=== PATIENT | male | born 1940 | race Asian ===

== ENCOUNTER 2022-06-21 23:37 | Inpatient (IN) | payer OTHER ==
[~2022-06-21] VITALS: Ht 160 cm; Wt 60.3 kg
[2022-06-22] MEDS ORDERED: MORPHINE SULFATE 4 MG/ML CPJ (NOT FOR IM USE) IV ONE (00:15)
[2022-06-22 01:10] LABS: BASOPHILS % 0.1 % (0.0-2.0); EOSINOPHILS % 0.2 % (0.0-5.0); HEMATOCRIT. 39.3 % (42.0-52.0); HEMOGLOBIN. 12.8 g/dL (14.0-18.0); LYMPHOCYTES % 13.1 % (20.0-50.0); MEAN CORPUSCULAR HEMOGLOBIN 31.1 pg (28.0-32.0); MEAN CORPUSCULAR VOLUME 95.3 fL (80.0-94.0); MEAN PLATELET VOLUME 7.8 fl (7.4-10.4); MONOCYTES % 6.1 % (2.0-8.0); NEUTROPHILS % 80.5 % (40.0-76.0); PLATELET 165 x1000/uL (130-400); RED BLOOD CELL COUNT 4.12 mill/uL (4.7-6.1)
[2022-06-22] MEDS ORDERED: SODIUM CHLORIDE 0.9% 1,000 ML IV ONE (01:30)
[2022-06-22 01:40] LABS: CHLORIDE 109 mEq/L (98-107)
[2022-06-22 02:38] LABS: PROTHROMBIN TIME 11.2 sec (9.6-11.0)
[2022-06-22 12:00] VITALS: BP 125/79
[2022-06-22] MEDS ORDERED: ACETAMINOPHEN 325MG TABLET PO PRN ×2 (13:00)
[2022-06-22] MEDS ORDERED: ONDANSETRON HCL 4MG/2ML INJ IV PRN ×2 (13:00→19:15)
[2022-06-22] MEDS ORDERED: SODIUM CHLORIDE 0.9% 1,000 ML IV SCH (13:00)
[2022-06-22] MEDS ORDERED: DIPHENHYDRAMINE 50MG/ML VIAL IV PRN (13:00)
[2022-06-22] MEDS ORDERED: CLONIDINE 0.1MG TABLET PO PRN (13:00)
[2022-06-22] MEDS ORDERED: DEXTROSE 50% WATER 50ML SYRINGE IV PRN (13:00)
[2022-06-22] MEDS ORDERED: MAGNESIUM/ALUMINUM HYDROXIDE/SIMETHICONE 30ML UDC PO PRN (13:00)
[2022-06-22] MEDS ORDERED: NALOXONE HCL 0.4MG/ML VIAL IV PRN (13:15)
[2022-06-22] MEDS: PANTOPRAZOLE SODIUM 40 MG/VIAL IV SCH (14:39)
[2022-06-22] MEDS: SODIUM CHLORIDE 0.9% 1,000 ML IV SCH ×2 (14:40→22:55)
[2022-06-22] MEDS: MORPHINE SULFATE 2 MG/ML CPJ (NOT FOR IM USE) IV PRN (14:40)
[2022-06-22 15:55] VITALS: BP 125/79
[2022-06-22 16:00] VITALS: BP 144/90
[2022-06-22] MEDS ORDERED: LIDOCAINE HCL 1%/EPI 1:200,000 30 ML VIAL ONE (16:20)
[2022-06-22] MEDS ORDERED: VANCOMYCIN HCL 1 GM/VIAL ONE (16:21)
[2022-06-22] MEDS ORDERED: POLYMYXIN B SULFATE 500000 UNITS/VIAL ONE (16:21)
[2022-06-22] MEDS ORDERED: BACITRACIN 15GM TUBE TOP ONE (16:21)
[2022-06-22] MEDS ORDERED: DEXAMETHASONE 4MG/ML 1ML VIAL ONE (17:31)
[2022-06-22] MEDS ORDERED: ONDANSETRON HCL 4MG/2ML INJ ONE (17:31)
[2022-06-22] MEDS ORDERED: PROPOFOL 200MG/20ML VIAL IV ONE (17:32)
[2022-06-22] MEDS ORDERED: LIDOCAINE HCL 1% 10 MG/ML 10ML VIAL ONE (17:32)
[2022-06-22] MEDS ORDERED: FENTANYL CITRATE/PF 50MCG/ML 2ML VIAL ONE (17:33)
[2022-06-22] MEDS ORDERED: MIDAZOLAM HCL 2 MG/2 ML VIAL ONE (17:33)
[2022-06-22] MEDS ORDERED: ETOMIDATE 2MG/ML 10ML VIAL IV ONE (18:02)
[2022-06-22] MEDS ORDERED: PHENYLEPHRINE HCL 10 MG/ML 1ML (IV VIAL) IV ONE (18:03)
[2022-06-22] MEDS ORDERED: HYDROMORPHONE HCL/PF 2MG/ML CPJ ONE (18:58)
[2022-06-22] MEDS ORDERED: MEPERIDINE HCL/PF 25MG/ML CPJ IV PRN (19:15)
[2022-06-22] MEDS ORDERED: HYDROMORPHONE HCL/PF 2MG/ML CPJ IV PRN (19:15)
[2022-06-22] MEDS ORDERED: LABETALOL 5MG/ML SYR 20 MG/4 ML SYRINGE IV PRN (19:15)
[2022-06-22 20:00] VITALS: BP 116/81
[2022-06-22] MEDS ORDERED: ZOLPIDEM TARTRATE 5MG TABLET PO PRN (21:00)
[2022-06-22] MEDS: BLOOD SUGAR DIAGNOSTIC STRIP TEST SCH (21:00)
[2022-06-22] MEDS: INSULIN LISPRO 100 UNITS/ML SUBCUT SCH (22:51)
[2022-06-23] VITALS: BP 133/80
[2022-06-23] MEDS: CEFAZOLIN 2,000 MG in DEXT 5% WATER 100 ML IV SCH ×3 (01:38→18:12)
[2022-06-23] MEDS: MORPHINE SULFATE 2 MG/ML CPJ (NOT FOR IM USE) IV PRN ×2 (05:28→11:57)
[2022-06-23] MEDS: BLOOD SUGAR DIAGNOSTIC STRIP TEST SCH ×4 (06:20→21:12)
[2022-06-23] MEDS: INSULIN LISPRO 100 UNITS/ML SUBCUT SCH ×4 (07:50→21:09)
[2022-06-23 08:00] VITALS: BP 154/76
[2022-06-23] MEDS: SODIUM CHLORIDE 0.9% 1,000 ML IV SCH (09:00)
[2022-06-23] MEDS: PANTOPRAZOLE SODIUM 40 MG/VIAL IV SCH (09:00)
[2022-06-23] MEDS: ENOXAPARIN 40MG/0.4ML SYR SUBCUT SCH (09:00)
[2022-06-23] MEDS: METOPROLOL SUCCINATE 50MG ER TABLET PO SCH (09:46)
[2022-06-23 12:27] VITALS: BP 129/79
[2022-06-23 16:14] VITALS: BP 140/74
[2022-06-23] MEDS: HYDROCODONE/ACETAMINOPHEN 5/325MG TABLET PO PRN (17:00)
[2022-06-23] MEDS ORDERED: METFORMIN HCL 500MG TABLET PO SCH (17:50)
[2022-06-23] MEDS: METFORMIN HCL 500MG TABLET PO SCH (18:11)
[2022-06-23 20:00] VITALS: BP 126/78
[2022-06-23] MEDS: OMEPRAZOLE 20MG CAPSULE EXTENDED RELEASE PO SCH (20:49)
[2022-06-24] VITALS: BP 122/72
[2022-06-24] MEDS ORDERED: ZOLPIDEM TARTRATE 5MG TABLET PO PRN (01:15)
[2022-06-24] MEDS: CEFAZOLIN 2,000 MG in DEXT 5% WATER 100 ML IV SCH ×2 (01:40→10:23)
[2022-06-24 04:00] VITALS: BP 141/76
[2022-06-24] MEDS: BLOOD SUGAR DIAGNOSTIC STRIP TEST SCH ×4 (07:20→20:34)
[2022-06-24] MEDS: INSULIN LISPRO 100 UNITS/ML SUBCUT SCH ×4 (07:50→21:13)
[2022-06-24 08:00] VITALS: BP 145/71
[2022-06-24] MEDS: METOPROLOL SUCCINATE 50MG ER TABLET PO SCH (09:21)
[2022-06-24] MEDS: ENOXAPARIN 40MG/0.4ML SYR SUBCUT SCH (09:21)
[2022-06-24] MEDS: OMEPRAZOLE 20MG CAPSULE EXTENDED RELEASE PO SCH ×2 (09:21→21:10)
[2022-06-24] MEDS: METFORMIN HCL 500MG TABLET PO SCH ×2 (09:22→18:38)
[2022-06-24 12:00] VITALS: BP 159/85
[2022-06-24] MEDS: HYDROCODONE/ACETAMINOPHEN 5/325MG TABLET PO PRN (15:39)
[2022-06-24 16:00] VITALS: BP 157/98
[2022-06-24 16:26] LABS: BASOPHILS % 0.3 % (0.0-2.0); EOSINOPHILS % 0.2 % (0.0-5.0); HEMATOCRIT. 23.5 % (42.0-52.0); HEMOGLOBIN. 7.9 g/dL (14.0-18.0); MEAN CORPUSCULAR VOLUME 95.7 fL (80.0-94.0); MEAN PLATELET VOLUME 8.4 fl (7.4-10.4); MONOCYTES % 6.8 % (2.0-8.0); NEUTROPHILS % 82.7 % (40.0-76.0); PLATELET 106 x1000/uL (130-400); RED BLOOD CELL COUNT 2.46 mill/uL (4.7-6.1)
[2022-06-24] MEDS ORDERED: HALOPERIDOL 0.5MG TABLET PO PRN (17:00)
[2022-06-24 17:06] LABS: CHLORIDE 109 mEq/L (98-107)
[2022-06-24 20:00] VITALS: BP 129/66
[2022-06-25] VITALS (10 sets, daily range): BP systolic 123–148; BP diastolic 60–80
[2022-06-25] MEDS: HYDROCODONE/ACETAMINOPHEN 5/325MG TABLET PO PRN ×2 (00:44→20:11)
[2022-06-25] MEDS: BLOOD SUGAR DIAGNOSTIC STRIP TEST SCH ×4 (06:11→20:43)
[2022-06-25 07:52] LABS: MEAN CORPUSCULAR HEMOGLOBIN 32.1 pg (28.0-32.0); MEAN CORPUSCULAR VOLUME 95.1 fL (80.0-94.0); PLATELET 104 x1000/uL (130-400); RED BLOOD CELL COUNT 2.17 mill/uL (4.7-6.1); RED CELL DISTRIBUTION WIDTH 14.8 % (11.6-14.6)
[2022-06-25 08:05] LABS: HEMATOCRIT 20.6 % (42.0-52.0)
[2022-06-25] MEDS: METFORMIN HCL 500MG TABLET PO SCH ×2 (08:43→18:50)
[2022-06-25] MEDS: METOPROLOL SUCCINATE 50MG ER TABLET PO SCH (08:44)
[2022-06-25] MEDS: ENOXAPARIN 40MG/0.4ML SYR SUBCUT SCH (08:45)
[2022-06-25] MEDS: OMEPRAZOLE 20MG CAPSULE EXTENDED RELEASE PO SCH ×2 (08:45→20:09)
[2022-06-25] MEDS: INSULIN LISPRO 100 UNITS/ML SUBCUT SCH ×4 (09:00→20:51)
[2022-06-25] MEDS ORDERED: IRON SUCROSE COMPLEX 100 MG/5 ML ML IV NR (10:00)
[2022-06-26] VITALS: BP 149/73
[2022-06-26] MEDS ORDERED: LACTULOSE 20G/30ML UDC PO PRN (01:00)
[2022-06-26 04:00] VITALS: BP 135/80
[2022-06-26] MEDS: OMEPRAZOLE 20MG CAPSULE EXTENDED RELEASE PO SCH ×2 (06:40→22:05)
[2022-06-26] MEDS: BLOOD SUGAR DIAGNOSTIC STRIP TEST SCH ×4 (06:43→21:00)
[2022-06-26] MEDS: HYDROCODONE/ACETAMINOPHEN 5/325MG TABLET PO PRN ×4 (06:43→22:05)
[2022-06-26 07:35] LABS: HEMATOCRIT 25.8 % (42.0-52.0); HEMOGLOBIN 8.9 g/dL (14.0-18.0); MEAN CORPUSCULAR HEMOGLOBIN 32.2 pg (28.0-32.0); MEAN CORPUSCULAR VOLUME 92.8 fL (80.0-94.0); PLATELET 128 x1000/uL (130-400); RED BLOOD CELL COUNT 2.78 mill/uL (4.7-6.1); RED CELL DISTRIBUTION WIDTH 15.3 % (11.6-14.6)
[2022-06-26 07:45] VITALS: BP 144/81
[2022-06-26] MEDS: INSULIN LISPRO 100 UNITS/ML SUBCUT SCH ×4 (07:50→22:10)
[2022-06-26] MEDS: METFORMIN HCL 500MG TABLET PO SCH ×2 (08:30→17:21)
[2022-06-26] MEDS: METOPROLOL SUCCINATE 50MG ER TABLET PO SCH (08:31)
[2022-06-26 08:32] LABS: CHLORIDE 105 mEq/L (98-107)
[2022-06-26] MEDS ORDERED: POTASSIUM CHLORIDE 20MEQ TABLET SR PO NR (09:00)
[2022-06-26] MEDS ORDERED: TRAMADOL 50MG TABLET PO PRN (09:00)
[2022-06-26 12:00] VITALS: BP 122/62
[2022-06-26 16:00] VITALS: BP 127/65
[2022-06-26 20:00] VITALS: BP 141/72
[2022-06-27] VITALS: BP 147/66
[2022-06-27] MEDS: HYDROCODONE/ACETAMINOPHEN 5/325MG TABLET PO PRN ×3 (01:40→10:56)
[2022-06-27 04:00] VITALS: BP 160/72
[2022-06-27] MEDS: OMEPRAZOLE 20MG CAPSULE EXTENDED RELEASE PO SCH (06:24)
[2022-06-27] MEDS: BLOOD SUGAR DIAGNOSTIC STRIP TEST SCH ×2 (06:30→12:20)
[2022-06-27] MEDS: INSULIN LISPRO 100 UNITS/ML SUBCUT SCH ×2 (06:43→13:00)
[2022-06-27 08:02] VITALS: BP 161/80
[2022-06-27] MEDS: METFORMIN HCL 500MG TABLET PO SCH (08:42)
[2022-06-27] MEDS: METOPROLOL SUCCINATE 50MG ER TABLET PO SCH (08:44)
[2022-06-27 12:00] VITALS: BP 142/84
[2022-06-27] MEDS ORDERED: POTASSIUM CHLORIDE 20MEQ TABLET SR PO NR (12:00)
[2022-06-27 16:11] VITALS: BP 142/84
== END 2022-06-27 16:16 | DRG 480 ==
LOC: ER 23:37 → EDBEDREQ 06-22 06:08 → ENRESERV 06-22 08:30 → 6EST 06-22 10:35
PROVIDERS: ADMIT Internal Medicine; ATTEND Internal Medicine
PROC: 0QS706Z Reposition Left Upper Femur with Intramedullary Internal Fixation Device, Open Approach (ICD-10-PCS; principal; 2022-06-22)
PROC: BQ14ZZZ Fluoroscopy of Left Femur (ICD-10-PCS; 2022-06-22)
PROC: 30233N1 Transfusion of Nonautologous Red Blood Cells into Peripheral Vein, Percutaneous Approach (ICD-10-PCS; 2022-06-25)
PROC: 4A00X4Z Measurement of Central Nervous Electrical Activity, External Approach (ICD-10-PCS; 2022-06-26)
DX: S72.142A Displaced intertrochanteric fracture of left femur, initial encounter for closed fracture (principal); G93.41 Metabolic encephalopathy; I63.541 Cerebral infarction due to unspecified occlusion or stenosis of right cerebellar artery; G81.91 Hemiplegia, unspecified affecting right dominant side; E11.9 Type 2 diabetes mellitus without complications; E78.00 Pure hypercholesterolemia, unspecified; D69.6 Thrombocytopenia, unspecified; D64.9 Anemia, unspecified; D72.829 Elevated white blood cell count, unspecified; E87.6 Hypokalemia; H91.93 Unspecified hearing loss, bilateral; I10 Essential (primary) hypertension; M17.0 Bilateral primary osteoarthritis of knee; N40.0 Benign prostatic hyperplasia without lower urinary tract symptoms; R13.10 Dysphagia, unspecified; Z82.49 Family history of ischemic heart disease and other diseases of the circulatory system; Z86.718 Personal history of other venous thrombosis and embolism; Z86.73 Personal history of transient ischemic attack (TIA), and cerebral infarction without residual deficits; R47.1 Dysarthria and anarthria; R53.81 Other malaise; V89.2XXA Person injured in unspecified motor-vehicle accident, traffic, initial encounter; Y92.410 Unspecified street and highway as the place of occurrence of the external cause; R74.01 Elevation of levels of liver transaminase levels; Z98.49 Cataract extraction status, unspecified eye; V49.9XXA Car occupant (driver) (passenger) injured in unspecified traffic accident, initial encounter; Y93.89 Activity, other specified; Y99.8 Other external cause status
CPT/HCPCS: 36415; 70551; 71045; 72170; 73502; 76000; 80048; 80053; 82962; 83036; 85025; 85027; 86850; 86900; 86920; 93005; 93880; 93970; 95816; 97110; 97162; 97166; 97530; 99285; C1893; C9113; J0690; J1100; J1170; J1200; J1650; J1815; J2250; J2270; J2370; J2405; J2704; J3010; J3370; J3490; J7030; J7060; P9016; C1713

== ENCOUNTER 2022-06-27 16:15 | Inpatient (IN) | payer OTHER ==
[~2022-06-27] VITALS: Ht 160 cm; Wt 74.9 kg
[2022-06-27] MEDS ORDERED: LACTULOSE 20G/30ML UDC PO PRN (18:45)
[2022-06-27] MEDS ORDERED: MAGNESIUM/ALUMINUM HYDROXIDE/SIMETHICONE 30ML UDC PO PRN (18:45)
[2022-06-27] MEDS ORDERED: DEXTROSE 50% WATER 50ML SYRINGE IV PRN (18:45)
[2022-06-27] MEDS ORDERED: NALOXONE HCL 0.4 MG/ML 1ML VIAL IV PRN (18:45)
[2022-06-27] MEDS ORDERED: DIPHENHYDRAMINE 25MG CAPSULE PO PRN (18:45)
[2022-06-27] MEDS ORDERED: ONDANSETRON HCL 4MG TABLET PO PRN (18:45)
[2022-06-27] MEDS: INSULIN LISPRO 100 UNITS/ML SUBCUT SCH ×2 (19:00→21:00)
[2022-06-27] MEDS: BLOOD SUGAR DIAGNOSTIC STRIP TEST SCH ×2 (19:00→21:00)
[2022-06-27] MEDS: METFORMIN HCL 500MG TABLET PO SCH (19:00)
[2022-06-27] MEDS ORDERED: NALOXONE HCL 0.4MG/ML VIAL IV PRN (19:15)
[2022-06-27 19:57] VITALS: BP 146/81
[2022-06-27 20:00] VITALS: BP 146/81
[2022-06-27] MEDS ORDERED: HALOPERIDOL 0.5MG TABLET PO PRN (21:00)
[2022-06-27] MEDS: HYDROCODONE/ACETAMINOPHEN 5/325MG TABLET PO PRN (21:24)
[2022-06-27] MEDS: OMEPRAZOLE 20MG CAPSULE EXTENDED RELEASE PO SCH (21:25)
[2022-06-28] MEDS: BLOOD SUGAR DIAGNOSTIC STRIP TEST SCH ×4 (06:30→21:41)
[2022-06-28] MEDS: INSULIN LISPRO 100 UNITS/ML SUBCUT SCH ×4 (06:47→21:00)
[2022-06-28 07:15] LABS: BASOPHILS % 0.6 % (0.0-2.0); EOSINOPHILS % 3.6 % (0.0-5.0); HEMATOCRIT. 29.7 % (42.0-52.0); HEMOGLOBIN. 10.1 g/dL (14.0-18.0); LYMPHOCYTES % 13.7 % (20.0-50.0); MEAN CORPUSCULAR HEMOGLOBIN 31.8 pg (28.0-32.0); MEAN CORPUSCULAR VOLUME 93.8 fL (80.0-94.0); MEAN PLATELET VOLUME 8.1 fl (7.4-10.4); MONOCYTES % 11.8 % (2.0-8.0); NEUTROPHILS % 70.3 % (40.0-76.0); PLATELET 200 x1000/uL (130-400); RED BLOOD CELL COUNT 3.17 mill/uL (4.7-6.1); RED CELL DISTRIBUTION WIDTH 15.1 % (11.6-14.6)
[2022-06-28 08:00] VITALS: BP 147/73
[2022-06-28] MEDS: OMEPRAZOLE 20MG CAPSULE EXTENDED RELEASE PO SCH ×2 (08:57→21:17)
[2022-06-28] MEDS: METOPROLOL SUCCINATE 50MG ER TABLET PO SCH (08:58)
[2022-06-28] MEDS: METFORMIN HCL 500MG TABLET PO SCH ×2 (08:58→16:31)
[2022-06-28] MEDS ORDERED: PNEUMOCOCCAL 23-VAL P-SAC VAC 0.5 ML IM ONE (09:00)
[2022-06-28 09:03] LABS: CHLORIDE 103 mEq/L (98-107)
[2022-06-28] MEDS: HYDROCODONE/ACETAMINOPHEN 5/325MG TABLET PO PRN ×2 (09:47→21:34)
[2022-06-28] MEDS ORDERED: POTASSIUM CHLORIDE 20MEQ TABLET SR PO NR (13:00)
[2022-06-28 20:00] VITALS: BP 122/73
[2022-06-28] MEDS: ATORVASTATIN CALCIUM 10MG TABLET PO SCH (21:17)
[2022-06-29 05:19] LABS: CHLORIDE 101 mEq/L (98-107)
[2022-06-29 05:20] LABS: HEMATOCRIT. 32.3 % (42.0-52.0); HEMOGLOBIN. 10.8 g/dL (14.0-18.0); MEAN CORPUSCULAR HEMOGLOBIN 31.8 pg (28.0-32.0); MEAN PLATELET VOLUME 7.7 fl (7.4-10.4); PLATELET 235 x1000/uL (130-400); RED BLOOD CELL COUNT 3.41 mill/uL (4.7-6.1); RED CELL DISTRIBUTION WIDTH 15.5 % (11.6-14.6)
[2022-06-29 05:37] LABS: TOTAL IRON BINDING CAPACITY 232 ug/dL (250-450)
[2022-06-29 05:38] LABS: FERRITIN 600 ng/mL (22-322)
[2022-06-29 05:50] LABS: VITAMIN B12 SERUM 563 pg/mL (211-911)
[2022-06-29 05:51] LABS: FOLIC ACID (FOLATE) SERUM > 20.00 ng/mL (>5.38)
[2022-06-29] MEDS: BLOOD SUGAR DIAGNOSTIC STRIP TEST SCH ×4 (06:30→21:19)
[2022-06-29] MEDS: METFORMIN HCL 500MG TABLET PO SCH ×2 (09:44→17:03)
[2022-06-29] MEDS: OMEPRAZOLE 20MG CAPSULE EXTENDED RELEASE PO SCH ×2 (09:44→21:30)
[2022-06-29] MEDS: METOPROLOL SUCCINATE 50MG ER TABLET PO SCH (09:46)
[2022-06-29] MEDS: INSULIN LISPRO 100 UNITS/ML SUBCUT SCH ×4 (09:48→21:40)
[2022-06-29 11:04] VITALS: BP 115/81
[2022-06-29 13:25] LABS: PLATELET ESTIMATE NORMAL
[2022-06-29 20:00] VITALS: BP 128/82
[2022-06-29] MEDS: ATORVASTATIN CALCIUM 10MG TABLET PO SCH (21:30)
[2022-06-29] MEDS: HYDROCODONE/ACETAMINOPHEN 5/325MG TABLET PO PRN (21:44)
[2022-06-30] MEDS: BLOOD SUGAR DIAGNOSTIC STRIP TEST SCH ×4 (06:10→21:58)
[2022-06-30] MEDS: INSULIN LISPRO 100 UNITS/ML SUBCUT SCH ×5 (06:19→21:00)
[2022-06-30] MEDS: HYDROCODONE/ACETAMINOPHEN 5/325MG TABLET PO PRN ×2 (08:29→13:51)
[2022-06-30] MEDS: OMEPRAZOLE 20MG CAPSULE EXTENDED RELEASE PO SCH ×2 (08:29→22:01)
[2022-06-30] MEDS: METFORMIN HCL 500MG TABLET PO SCH ×2 (09:48→17:35)
[2022-06-30] MEDS: METOPROLOL SUCCINATE 50MG ER TABLET PO SCH (09:49)
[2022-06-30 10:54] VITALS: BP 119/81
[2022-06-30] MEDS: LIDOCAINE 5% PATCH TOP SCH (17:35)
[2022-06-30 20:00] VITALS: BP 106/58
[2022-06-30] MEDS ORDERED: INSULIN GLARGINE 100 UNITS/ML SUBCUT SCH (22:00)
[2022-06-30] MEDS: INSULIN GLARGINE 100 UNITS/ML SUBCUT SCH (22:00)
[2022-06-30] MEDS: ATORVASTATIN CALCIUM 10MG TABLET PO SCH (22:01)
[2022-06-30] MEDS: MELATONIN 3MG TABLET PO SCH (22:01)
[2022-07-01] MEDS: ACETAMINOPHEN 325MG TABLET PO PRN ×2 (03:13→22:54)
[2022-07-01] MEDS: BLOOD SUGAR DIAGNOSTIC STRIP TEST SCH ×4 (06:27→21:49)
[2022-07-01] MEDS: INSULIN LISPRO 100 UNITS/ML SUBCUT SCH ×4 (06:38→21:50)
[2022-07-01 08:00] VITALS: BP 125/90
[2022-07-01] MEDS: METOPROLOL SUCCINATE 50MG ER TABLET PO SCH (09:05)
[2022-07-01] MEDS: HYDROCODONE/ACETAMINOPHEN 5/325MG TABLET PO PRN ×2 (09:05→13:30)
[2022-07-01] MEDS: OMEPRAZOLE 20MG CAPSULE EXTENDED RELEASE PO SCH (09:05)
[2022-07-01] MEDS: METFORMIN HCL 500MG TABLET PO SCH ×2 (09:05→18:12)
[2022-07-01] MEDS: LIDOCAINE 5% PATCH TOP SCH (09:06)
[2022-07-01] MEDS: TRAMADOL 50MG TABLET PO PRN (15:30)
[2022-07-01 20:00] VITALS: BP 106/63
[2022-07-01] MEDS: ATORVASTATIN CALCIUM 10MG TABLET PO SCH (21:50)
[2022-07-01] MEDS: MELATONIN 3MG TABLET PO SCH (21:50)
[2022-07-01] MEDS: INSULIN GLARGINE 100 UNITS/ML SUBCUT SCH (22:15)
[2022-07-01] MEDS: PANTOPRAZOLE 40MG DR TABLET PO SCH (22:53)
[2022-07-02 06:14] LABS: BASOPHILS % 0.4 % (0.0-2.0); EOSINOPHILS % 3.6 % (0.0-5.0); HEMATOCRIT. 30.9 % (42.0-52.0); HEMOGLOBIN. 10.5 g/dL (14.0-18.0); LYMPHOCYTES % 18.4 % (20.0-50.0); MEAN CORPUSCULAR HEMOGLOBIN 32.5 pg (28.0-32.0); MEAN CORPUSCULAR VOLUME 95.7 fL (80.0-94.0); MEAN PLATELET VOLUME 7.5 fl (7.4-10.4); MONOCYTES % 12.9 % (2.0-8.0); NEUTROPHILS % 64.7 % (40.0-76.0); PLATELET 297 x1000/uL (130-400); RED BLOOD CELL COUNT 3.23 mill/uL (4.7-6.1); RED CELL DISTRIBUTION WIDTH 16.2 % (11.6-14.6)
[2022-07-02] MEDS: BLOOD SUGAR DIAGNOSTIC STRIP TEST SCH ×4 (06:30→21:19)
[2022-07-02] MEDS: HYDROCODONE/ACETAMINOPHEN 5/325MG TABLET PO PRN ×2 (07:41→13:09)
[2022-07-02 08:00] VITALS: BP 131/71
[2022-07-02] MEDS: INSULIN LISPRO 100 UNITS/ML SUBCUT SCH ×4 (08:24→21:00)
[2022-07-02] MEDS ORDERED: FAMOTIDINE 20MG TABLET PO SCH (09:00)
[2022-07-02] MEDS: METFORMIN HCL 500MG TABLET PO SCH ×2 (10:27→17:49)
[2022-07-02] MEDS: LIDOCAINE 5% PATCH TOP SCH (10:27)
[2022-07-02] MEDS: METOPROLOL SUCCINATE 50MG ER TABLET PO SCH (10:27)
[2022-07-02] MEDS: TRAMADOL 50MG TABLET PO PRN (10:27)
[2022-07-02] MEDS: PANTOPRAZOLE 40MG DR TABLET PO SCH ×2 (10:27→21:19)
[2022-07-02 20:00] VITALS: BP 127/70
[2022-07-02] MEDS: ATORVASTATIN CALCIUM 10MG TABLET PO SCH (21:18)
[2022-07-02] MEDS: MELATONIN 3MG TABLET PO SCH (21:19)
[2022-07-02] MEDS: ACETAMINOPHEN 325MG TABLET PO PRN (21:20)
[2022-07-02] MEDS: INSULIN GLARGINE 100 UNITS/ML SUBCUT SCH (21:26)
[2022-07-03] MEDS: BLOOD SUGAR DIAGNOSTIC STRIP TEST SCH ×3 (05:35→21:00)
[2022-07-03 08:00] VITALS: BP 112/79
[2022-07-03] MEDS: INSULIN LISPRO 100 UNITS/ML SUBCUT SCH ×3 (09:00→21:00)
[2022-07-03] MEDS: PANTOPRAZOLE 40MG DR TABLET PO SCH ×2 (09:34→21:00)
[2022-07-03] MEDS: METOPROLOL SUCCINATE 50MG ER TABLET PO SCH (09:35)
[2022-07-03] MEDS: METFORMIN HCL 500MG TABLET PO SCH (09:36)
[2022-07-03] MEDS: LIDOCAINE 5% PATCH TOP SCH (09:37)
[2022-07-03] MEDS: ACETAMINOPHEN 325MG TABLET PO PRN (09:43)
[2022-07-03] MEDS ORDERED: NALOXONE HCL 0.4MG/ML VIAL IV PRN (12:30)
[2022-07-03] MEDS: HYDROCODONE/ACETAMINOPHEN 5/325MG TABLET PO PRN (14:28)
[2022-07-03 17:06] LABS: 25-HYDROXY VITAMIN D3 43 ng/mL (.)
[2022-07-03 20:00] VITALS: BP 127/82
[2022-07-03] MEDS: MELATONIN 3MG TABLET PO SCH (21:00)
[2022-07-03] MEDS: ATORVASTATIN CALCIUM 10MG TABLET PO SCH (21:00)
[2022-07-03] MEDS: INSULIN GLARGINE 100 UNITS/ML SUBCUT SCH (22:00)
[2022-07-04] MEDS: BLOOD SUGAR DIAGNOSTIC STRIP TEST SCH ×4 (05:50→21:00)
[2022-07-04] MEDS: HYDROCODONE/ACETAMINOPHEN 5/325MG TABLET PO PRN ×3 (06:30→16:08)
[2022-07-04 08:00] VITALS: BP 139/67
[2022-07-04] MEDS: INSULIN LISPRO 100 UNITS/ML SUBCUT SCH ×4 (08:39→21:20)
[2022-07-04] MEDS: METFORMIN HCL 500MG TABLET PO SCH ×2 (08:39→17:13)
[2022-07-04] MEDS: METOPROLOL SUCCINATE 50MG ER TABLET PO SCH (08:39)
[2022-07-04] MEDS: LIDOCAINE 5% PATCH TOP SCH (08:39)
[2022-07-04] MEDS: PANTOPRAZOLE 40MG DR TABLET PO SCH ×2 (08:39→21:16)
[2022-07-04] MEDS: TRAMADOL 50MG TABLET PO PRN (13:39)
[2022-07-04] MEDS: ENOXAPARIN 40MG/0.4ML SYR SUBCUT SCH (15:41)
[2022-07-04 20:00] VITALS: BP 118/64
[2022-07-04] MEDS: MELATONIN 3MG TABLET PO SCH (21:14)
[2022-07-04] MEDS: ATORVASTATIN CALCIUM 10MG TABLET PO SCH (21:14)
[2022-07-04] MEDS: ACETAMINOPHEN 325MG TABLET PO PRN (21:15)
[2022-07-04] MEDS: INSULIN GLARGINE 100 UNITS/ML SUBCUT SCH (22:00)
[2022-07-05] MEDS: BLOOD SUGAR DIAGNOSTIC STRIP TEST SCH ×4 (06:30→21:58)
[2022-07-05 08:00] VITALS: BP 145/75
[2022-07-05] MEDS: INSULIN LISPRO 100 UNITS/ML SUBCUT SCH ×4 (08:36→21:00)
[2022-07-05] MEDS: METFORMIN HCL 500MG TABLET PO SCH ×2 (09:18→17:44)
[2022-07-05] MEDS: PANTOPRAZOLE 40MG DR TABLET PO SCH ×2 (09:18→21:58)
[2022-07-05] MEDS: ENOXAPARIN 40MG/0.4ML SYR SUBCUT SCH (09:19)
[2022-07-05] MEDS: METOPROLOL SUCCINATE 50MG ER TABLET PO SCH (09:19)
[2022-07-05] MEDS: LIDOCAINE 5% PATCH TOP SCH (09:22)
[2022-07-05] MEDS: HYDROCODONE/ACETAMINOPHEN 5/325MG TABLET PO PRN (09:24)
[2022-07-05] MEDS: TRAMADOL 50MG TABLET PO PRN (17:45)
[2022-07-05 20:00] VITALS: BP 128/72
[2022-07-05] MEDS: ACETAMINOPHEN 325MG TABLET PO PRN (21:57)
[2022-07-05] MEDS: MELATONIN 3MG TABLET PO SCH (21:58)
[2022-07-05] MEDS: ATORVASTATIN CALCIUM 10MG TABLET PO SCH (21:58)
[2022-07-05] MEDS: INSULIN GLARGINE 100 UNITS/ML SUBCUT SCH (22:49)
[2022-07-06] MEDS: BLOOD SUGAR DIAGNOSTIC STRIP TEST SCH ×4 (06:30→21:30)
[2022-07-06] MEDS: INSULIN LISPRO 100 UNITS/ML SUBCUT SCH ×4 (07:33→21:45)
[2022-07-06 08:00] VITALS: BP 159/84
[2022-07-06 08:02] LABS: BASOPHILS % 0.5 % (0.0-2.0); EOSINOPHILS % 2.2 % (0.0-5.0); HEMATOCRIT. 34.5 % (42.0-52.0); HEMOGLOBIN. 11.6 g/dL (14.0-18.0); LYMPHOCYTES % 23.2 % (20.0-50.0); MEAN CORPUSCULAR HEMOGLOBIN 32.4 pg (28.0-32.0); MEAN CORPUSCULAR VOLUME 96.6 fL (80.0-94.0); MEAN PLATELET VOLUME 7.3 fl (7.4-10.4); MONOCYTES % 7.8 % (2.0-8.0); NEUTROPHILS % 66.3 % (40.0-76.0); PLATELET 477 x1000/uL (130-400); RED BLOOD CELL COUNT 3.58 mill/uL (4.7-6.1)
[2022-07-06] MEDS: METFORMIN HCL 500MG TABLET PO SCH ×2 (08:35→18:05)
[2022-07-06] MEDS: METOPROLOL SUCCINATE 50MG ER TABLET PO SCH (08:35)
[2022-07-06] MEDS: PANTOPRAZOLE 40MG DR TABLET PO SCH ×2 (08:35→21:45)
[2022-07-06] MEDS: ENOXAPARIN 40MG/0.4ML SYR SUBCUT SCH (08:35)
[2022-07-06] MEDS: LIDOCAINE 5% PATCH TOP SCH (08:38)
[2022-07-06 09:15] LABS: CHLORIDE 103 mEq/L (98-107)
[2022-07-06] MEDS: HYDROCODONE/ACETAMINOPHEN 5/325MG TABLET PO PRN (18:29)
[2022-07-06 20:00] VITALS: BP 120/70
[2022-07-06] MEDS: MELATONIN 3MG TABLET PO SCH (21:45)
[2022-07-06] MEDS: ATORVASTATIN CALCIUM 10MG TABLET PO SCH (21:45)
[2022-07-06] MEDS: INSULIN GLARGINE 100 UNITS/ML SUBCUT SCH (22:00)
[2022-07-06 22:02] VITALS: BP 120/70
[2022-07-07] MEDS: ACETAMINOPHEN 325MG TABLET PO PRN (00:09)
[2022-07-07] MEDS: BLOOD SUGAR DIAGNOSTIC STRIP TEST SCH ×4 (06:09→21:00)
[2022-07-07] MEDS: HYDROCODONE/ACETAMINOPHEN 5/325MG TABLET PO PRN ×2 (06:32→10:43)
[2022-07-07 07:49] VITALS: BP 146/85
[2022-07-07] MEDS: METOPROLOL SUCCINATE 50MG ER TABLET PO SCH (08:08)
[2022-07-07] MEDS: PANTOPRAZOLE 40MG DR TABLET PO SCH ×2 (08:08→21:30)
[2022-07-07] MEDS: METFORMIN HCL 500MG TABLET PO SCH ×2 (08:08→16:29)
[2022-07-07] MEDS: ENOXAPARIN 40MG/0.4ML SYR SUBCUT SCH (08:08)
[2022-07-07] MEDS: LIDOCAINE 5% PATCH TOP SCH (08:09)
[2022-07-07] MEDS: INSULIN LISPRO 100 UNITS/ML SUBCUT SCH ×4 (09:00→21:30)
[2022-07-07] MEDS: TRAMADOL 50MG TABLET PO PRN (13:00)
[2022-07-07] MEDS: MELATONIN 3MG TABLET PO SCH (21:30)
[2022-07-07] MEDS: ATORVASTATIN CALCIUM 10MG TABLET PO SCH (21:30)
[2022-07-07 21:47] VITALS: BP 136/73
[2022-07-07] MEDS: INSULIN GLARGINE 100 UNITS/ML SUBCUT SCH (22:44)
[2022-07-08] MEDS: BLOOD SUGAR DIAGNOSTIC STRIP TEST SCH ×4 (06:34→22:19)
[2022-07-08] MEDS: INSULIN LISPRO 100 UNITS/ML SUBCUT SCH ×4 (06:35→22:34)
[2022-07-08] MEDS: ENOXAPARIN 40MG/0.4ML SYR SUBCUT SCH (07:55)
[2022-07-08] MEDS: LIDOCAINE 5% PATCH TOP SCH (07:56)
[2022-07-08] MEDS: METFORMIN HCL 500MG TABLET PO SCH ×2 (07:56→16:21)
[2022-07-08] MEDS: METOPROLOL SUCCINATE 50MG ER TABLET PO SCH (07:56)
[2022-07-08 08:00] VITALS: BP 140/75
[2022-07-08] MEDS: PANTOPRAZOLE 40MG DR TABLET PO SCH ×3 (08:01→22:26)
[2022-07-08] MEDS: TRAMADOL 50MG TABLET PO PRN (13:25)
[2022-07-08] MEDS ORDERED: NALOXONE HCL 0.4MG/ML VIAL IV PRN (15:15)
[2022-07-08] MEDS: ERGOCALCIFEROL 50000UNITS CAPSULE PO SCH (15:39)
[2022-07-08] MEDS: ACETAMINOPHEN 325MG TABLET PO PRN ×2 (15:43→22:27)
[2022-07-08 20:00] VITALS: BP 135/71
[2022-07-08] MEDS: INSULIN GLARGINE 100 UNITS/ML SUBCUT SCH (22:00)
[2022-07-08] MEDS: MELATONIN 3MG TABLET PO SCH (22:18)
[2022-07-08] MEDS: ATORVASTATIN CALCIUM 10MG TABLET PO SCH ×2 (22:18→22:27)
[2022-07-09] MEDS: BLOOD SUGAR DIAGNOSTIC STRIP TEST SCH ×4 (06:30→21:48)
[2022-07-09] MEDS: HYDROCODONE/ACETAMINOPHEN 5/325MG TABLET PO PRN ×2 (06:40→13:54)
[2022-07-09 08:00] VITALS: BP 142/71
[2022-07-09] MEDS: INSULIN LISPRO 100 UNITS/ML SUBCUT SCH ×4 (09:00→22:10)
[2022-07-09] MEDS: METFORMIN HCL 500MG TABLET PO SCH ×2 (09:56→17:45)
[2022-07-09] MEDS: PANTOPRAZOLE 40MG DR TABLET PO SCH ×2 (09:56→21:43)
[2022-07-09] MEDS: METOPROLOL SUCCINATE 50MG ER TABLET PO SCH (09:57)
[2022-07-09] MEDS: ENOXAPARIN 40MG/0.4ML SYR SUBCUT SCH (09:58)
[2022-07-09] MEDS: LIDOCAINE 5% PATCH TOP SCH (09:58)
[2022-07-09] MEDS ORDERED: ZOLPIDEM TARTRATE 5MG TABLET PO PRN (13:30)
[2022-07-09 20:14] VITALS: BP 130/76
[2022-07-09] MEDS: MELATONIN 3MG TABLET PO SCH (21:00)
[2022-07-09] MEDS: ATORVASTATIN CALCIUM 10MG TABLET PO SCH (21:43)
[2022-07-09] MEDS: ACETAMINOPHEN 325MG TABLET PO PRN (21:48)
[2022-07-09] MEDS: INSULIN GLARGINE 100 UNITS/ML SUBCUT SCH (22:00)
[2022-07-10] MEDS: HYDROCODONE/ACETAMINOPHEN 5/325MG TABLET PO PRN ×2 (06:45→13:07)
[2022-07-10] MEDS: BLOOD SUGAR DIAGNOSTIC STRIP TEST SCH ×4 (06:46→21:58)
[2022-07-10 08:00] VITALS: BP 135/90
[2022-07-10] MEDS: INSULIN LISPRO 100 UNITS/ML SUBCUT SCH ×4 (09:00→21:58)
[2022-07-10] MEDS: METFORMIN HCL 500MG TABLET PO SCH ×2 (09:09→17:09)
[2022-07-10] MEDS: METOPROLOL SUCCINATE 50MG ER TABLET PO SCH (09:10)
[2022-07-10] MEDS: ENOXAPARIN 40MG/0.4ML SYR SUBCUT SCH (09:14)
[2022-07-10] MEDS: LIDOCAINE 5% PATCH TOP SCH (09:16)
[2022-07-10] MEDS: PANTOPRAZOLE 40MG DR TABLET PO SCH ×2 (09:17→21:26)
[2022-07-10] MEDS: TRAMADOL 50MG TABLET PO PRN (09:53)
[2022-07-10 20:00] VITALS: BP 131/71
[2022-07-10] MEDS: MELATONIN 3MG TABLET PO SCH (21:26)
[2022-07-10] MEDS: ATORVASTATIN CALCIUM 10MG TABLET PO SCH (21:26)
[2022-07-10] MEDS: INSULIN GLARGINE 100 UNITS/ML SUBCUT SCH (21:59)
[2022-07-11 06:41] LABS: BASOPHILS % 0.8 % (0.0-2.0); EOSINOPHILS % 1.1 % (0.0-5.0); HEMATOCRIT. 35.1 % (42.0-52.0); HEMOGLOBIN. 11.6 g/dL (14.0-18.0); LYMPHOCYTES % 21.1 % (20.0-50.0); MEAN CORPUSCULAR HEMOGLOBIN 31.9 pg (28.0-32.0); MEAN CORPUSCULAR VOLUME 96.8 fL (80.0-94.0); MEAN PLATELET VOLUME 6.8 fl (7.4-10.4); MONOCYTES % 9.5 % (2.0-8.0); NEUTROPHILS % 67.5 % (40.0-76.0); PLATELET 420 x1000/uL (130-400); RED BLOOD CELL COUNT 3.62 mill/uL (4.7-6.1); RED CELL DISTRIBUTION WIDTH 18.1 % (11.6-14.6)
[2022-07-11 07:11] LABS: CHLORIDE 106 mEq/L (98-107)
[2022-07-11 08:00] VITALS: BP 138/86
[2022-07-11] MEDS: HYDROCODONE/ACETAMINOPHEN 5/325MG TABLET PO PRN ×2 (08:30→13:02)
[2022-07-11] MEDS: METOPROLOL SUCCINATE 50MG ER TABLET PO SCH (11:27)
[2022-07-11] MEDS: METFORMIN HCL 500MG TABLET PO SCH ×2 (11:28→19:27)
[2022-07-11] MEDS: PANTOPRAZOLE 40MG DR TABLET PO SCH ×2 (11:28→20:54)
[2022-07-11] MEDS: ENOXAPARIN 40MG/0.4ML SYR SUBCUT SCH (11:29)
[2022-07-11] MEDS: LIDOCAINE 5% PATCH TOP SCH (11:31)
[2022-07-11] MEDS: INSULIN LISPRO 100 UNITS/ML SUBCUT SCH ×2 (11:58→20:56)
[2022-07-11 20:00] VITALS: BP 109/65
[2022-07-11] MEDS: BLOOD SUGAR DIAGNOSTIC STRIP TEST SCH (20:50)
[2022-07-11] MEDS: MELATONIN 3MG TABLET PO SCH (20:54)
[2022-07-11] MEDS: DICLOFENAC SODIUM 1% GEL 50GM TOP SCH ×2 (20:54→21:00)
[2022-07-11] MEDS: ATORVASTATIN CALCIUM 10MG TABLET PO SCH (20:54)
[2022-07-12] MEDS: BLOOD SUGAR DIAGNOSTIC STRIP TEST SCH ×4 (06:52→21:30)
[2022-07-12 08:00] VITALS: BP 138/81
[2022-07-12] MEDS: METFORMIN HCL 500MG TABLET PO SCH ×2 (08:14→17:45)
[2022-07-12] MEDS: ENOXAPARIN 40MG/0.4ML SYR SUBCUT SCH (08:14)
[2022-07-12] MEDS: METOPROLOL SUCCINATE 50MG ER TABLET PO SCH (08:14)
[2022-07-12] MEDS: PANTOPRAZOLE 40MG DR TABLET PO SCH ×2 (08:14→21:45)
[2022-07-12] MEDS: DICLOFENAC SODIUM 1% GEL 50GM TOP SCH ×4 (08:14→21:45)
[2022-07-12] MEDS: INSULIN LISPRO 100 UNITS/ML SUBCUT SCH ×4 (08:14→21:45)
[2022-07-12] MEDS: LIDOCAINE 5% PATCH TOP SCH (08:15)
[2022-07-12] MEDS: TRAMADOL 50MG TABLET PO PRN (08:16)
[2022-07-12 20:00] VITALS: BP 145/79
[2022-07-12] MEDS: MELATONIN 3MG TABLET PO SCH (21:45)
[2022-07-12] MEDS: ATORVASTATIN CALCIUM 10MG TABLET PO SCH (21:45)
[2022-07-12] MEDS: ACETAMINOPHEN 325MG TABLET PO PRN (23:18)
[2022-07-13] MEDS: BLOOD SUGAR DIAGNOSTIC STRIP TEST SCH ×4 (06:30→21:16)
[2022-07-13] MEDS: INSULIN LISPRO 100 UNITS/ML SUBCUT SCH ×4 (07:10→21:00)
[2022-07-13 08:00] VITALS: BP 129/90
[2022-07-13] MEDS: ENOXAPARIN 40MG/0.4ML SYR SUBCUT SCH (08:54)
[2022-07-13] MEDS: DICLOFENAC SODIUM 1% GEL 50GM TOP SCH ×4 (08:55→21:16)
[2022-07-13] MEDS: LIDOCAINE 5% PATCH TOP SCH (08:55)
[2022-07-13] MEDS: PANTOPRAZOLE 40MG DR TABLET PO SCH ×2 (08:55→21:11)
[2022-07-13] MEDS: TRAMADOL 50MG TABLET PO PRN (08:56)
[2022-07-13] MEDS: METFORMIN HCL 500MG TABLET PO SCH ×2 (08:56→16:51)
[2022-07-13] MEDS: METOPROLOL SUCCINATE 50MG ER TABLET PO SCH (08:56)
[2022-07-13 20:00] VITALS: BP 130/80
[2022-07-13] MEDS: ATORVASTATIN CALCIUM 10MG TABLET PO SCH (21:11)
[2022-07-13] MEDS: MELATONIN 3MG TABLET PO SCH (21:11)
[2022-07-13] MEDS: ACETAMINOPHEN 325MG TABLET PO PRN (21:16)
[2022-07-14 05:56] LABS: BASOPHILS % 0.8 % (0.0-2.0); EOSINOPHILS % 3.7 % (0.0-5.0); HEMATOCRIT. 35.6 % (42.0-52.0); HEMOGLOBIN. 11.8 g/dL (14.0-18.0); MEAN CORPUSCULAR VOLUME 96.7 fL (80.0-94.0); MEAN PLATELET VOLUME 7.5 fl (7.4-10.4); MONOCYTES % 11.7 % (2.0-8.0); NEUTROPHILS % 56.8 % (40.0-76.0); PLATELET 332 x1000/uL (130-400); RED BLOOD CELL COUNT 3.68 mill/uL (4.7-6.1); RED CELL DISTRIBUTION WIDTH 18.4 % (11.6-14.6)
[2022-07-14 05:58] LABS: CHLORIDE 104 mEq/L (98-107)
[2022-07-14] MEDS: HYDROCODONE/ACETAMINOPHEN 5/325MG TABLET PO PRN ×2 (06:26→12:55)
[2022-07-14] MEDS: BLOOD SUGAR DIAGNOSTIC STRIP TEST SCH ×4 (06:28→21:51)
[2022-07-14] MEDS: INSULIN LISPRO 100 UNITS/ML SUBCUT SCH ×4 (06:45→21:00)
[2022-07-14 08:00] VITALS: BP 147/92
[2022-07-14] MEDS: PANTOPRAZOLE 40MG DR TABLET PO SCH ×2 (08:39→21:49)
[2022-07-14] MEDS: METFORMIN HCL 500MG TABLET PO SCH ×2 (08:39→17:06)
[2022-07-14] MEDS: CLONIDINE 0.1MG TABLET PO PRN (08:39)
[2022-07-14] MEDS: METOPROLOL SUCCINATE 50MG ER TABLET PO SCH (08:39)
[2022-07-14] MEDS: ENOXAPARIN 40MG/0.4ML SYR SUBCUT SCH (08:40)
[2022-07-14] MEDS: DICLOFENAC SODIUM 1% GEL 50GM TOP SCH ×4 (08:41→21:57)
[2022-07-14] MEDS: LIDOCAINE 5% PATCH TOP SCH (08:47)
[2022-07-14] MEDS: FINASTERIDE 5MG TABLET PO SCH (12:55)
[2022-07-14] MEDS ORDERED: NALOXONE HCL 0.4MG/ML VIAL IV PRN (16:00)
[2022-07-14 16:47] LABS: CLARITY URINE CLEAR (CLEAR); COLOR URINE YELLOW (YELLOW); KETONES URINE TRACE (NEGATIVE); LEUKOCYTE ESTERASE URINE NEGATIVE (NEGATIVE); NITRITE URINE NEGATIVE (NEGATIVE); OCCULT BLOOD URINE NEGATIVE (NEGATIVE); PH URINE 5.5 (4.5-8.0); PROTEIN URINE NEGATIVE (NEGATIVE); SPECIFIC GRAVITY URINE 1.018 (1.005-1.030); UROBILINOGEN URINE 0.2 E.U./dL (0.2-1.0)
[2022-07-14 19:44] VITALS: BP 111/68
[2022-07-14] MEDS: OXYBUTYNIN CHLORIDE 5MG TABLET PO SCH (21:49)
[2022-07-14] MEDS: ATORVASTATIN CALCIUM 10MG TABLET PO SCH (21:49)
[2022-07-14] MEDS: MELATONIN 3MG TABLET PO SCH (21:51)
[2022-07-15] MEDS: BLOOD SUGAR DIAGNOSTIC STRIP TEST SCH ×4 (06:36→21:00)
[2022-07-15] MEDS: HYDROCODONE/ACETAMINOPHEN 5/325MG TABLET PO PRN ×2 (06:42→13:54)
[2022-07-15 08:00] VITALS: BP 127/48
[2022-07-15] MEDS: LIDOCAINE 5% PATCH TOP SCH (09:00)
[2022-07-15] MEDS: ENOXAPARIN 40MG/0.4ML SYR SUBCUT SCH (09:00)
[2022-07-15] MEDS: DICLOFENAC SODIUM 1% GEL 50GM TOP SCH ×3 (09:00→21:25)
[2022-07-15] MEDS: PANTOPRAZOLE 40MG DR TABLET PO SCH ×2 (09:24→21:23)
[2022-07-15] MEDS: FINASTERIDE 5MG TABLET PO SCH (09:24)
[2022-07-15] MEDS: METFORMIN HCL 500MG TABLET PO SCH ×2 (09:25→17:50)
[2022-07-15] MEDS: OXYBUTYNIN CHLORIDE 5MG TABLET PO SCH ×2 (09:25→21:23)
[2022-07-15] MEDS: METOPROLOL SUCCINATE 50MG ER TABLET PO SCH (09:26)
[2022-07-15] MEDS: INSULIN LISPRO 100 UNITS/ML SUBCUT SCH ×3 (12:37→21:00)
[2022-07-15] MEDS: TRAMADOL 50MG TABLET PO PRN (12:38)
[2022-07-15] MEDS: ERGOCALCIFEROL 50000UNITS CAPSULE PO SCH (17:50)
[2022-07-15 20:06] VITALS: BP 171/73
[2022-07-15] MEDS: MELATONIN 3MG TABLET PO SCH (21:23)
[2022-07-15] MEDS: CLONIDINE 0.1MG TABLET PO PRN (21:23)
[2022-07-15] MEDS: ATORVASTATIN CALCIUM 10MG TABLET PO SCH (21:23)
[2022-07-16 05:53] VITALS: BP 132/82
[2022-07-16] MEDS: PANTOPRAZOLE 40MG DR TABLET PO SCH ×2 (06:15→21:23)
[2022-07-16] MEDS: HYDROCODONE/ACETAMINOPHEN 5/325MG TABLET PO PRN ×2 (06:16→13:24)
[2022-07-16] MEDS: BLOOD SUGAR DIAGNOSTIC STRIP TEST SCH ×4 (06:20→21:24)
[2022-07-16 08:00] VITALS: BP 135/66
[2022-07-16] MEDS: ENOXAPARIN 40MG/0.4ML SYR SUBCUT SCH (09:00)
[2022-07-16] MEDS: INSULIN LISPRO 100 UNITS/ML SUBCUT SCH ×4 (09:00→21:00)
[2022-07-16] MEDS: DICLOFENAC SODIUM 1% GEL 50GM TOP SCH ×4 (09:00→21:26)
[2022-07-16] MEDS: METFORMIN HCL 500MG TABLET PO SCH ×2 (09:16→17:16)
[2022-07-16] MEDS: FINASTERIDE 5MG TABLET PO SCH (09:16)
[2022-07-16] MEDS: METOPROLOL SUCCINATE 50MG ER TABLET PO SCH (09:16)
[2022-07-16] MEDS: OXYBUTYNIN CHLORIDE 5MG TABLET PO SCH ×2 (09:16→21:23)
[2022-07-16] MEDS: LIDOCAINE 5% PATCH TOP SCH (09:17)
[2022-07-16 20:00] VITALS: BP 129/52
[2022-07-16] MEDS: ATORVASTATIN CALCIUM 10MG TABLET PO SCH (21:23)
[2022-07-16] MEDS: MELATONIN 3MG TABLET PO SCH (21:23)
[2022-07-17] MEDS: BLOOD SUGAR DIAGNOSTIC STRIP TEST SCH ×4 (06:34→21:59)
[2022-07-17] MEDS: HYDROCODONE/ACETAMINOPHEN 5/325MG TABLET PO PRN ×2 (06:34→11:11)
[2022-07-17] MEDS: INSULIN LISPRO 100 UNITS/ML SUBCUT SCH ×4 (07:23→21:00)
[2022-07-17 08:00] VITALS: BP 143/73
[2022-07-17] MEDS: LIDOCAINE 5% PATCH TOP SCH (08:16)
[2022-07-17] MEDS: ENOXAPARIN 40MG/0.4ML SYR SUBCUT SCH (08:16)
[2022-07-17] MEDS: FINASTERIDE 5MG TABLET PO SCH (08:17)
[2022-07-17] MEDS: PANTOPRAZOLE 40MG DR TABLET PO SCH ×2 (08:17→21:57)
[2022-07-17] MEDS: DICLOFENAC SODIUM 1% GEL 50GM TOP SCH ×4 (08:17→22:00)
[2022-07-17] MEDS: METOPROLOL SUCCINATE 50MG ER TABLET PO SCH (08:17)
[2022-07-17] MEDS: METFORMIN HCL 500MG TABLET PO SCH ×2 (08:17→16:49)
[2022-07-17] MEDS: OXYBUTYNIN CHLORIDE 5MG TABLET PO SCH ×2 (08:17→22:00)
[2022-07-17] MEDS: TRAMADOL 50MG TABLET PO PRN (09:14)
[2022-07-17 20:00] VITALS: BP 157/82
[2022-07-17] MEDS: MELATONIN 3MG TABLET PO SCH (21:57)
[2022-07-17] MEDS: ATORVASTATIN CALCIUM 10MG TABLET PO SCH (21:58)
[2022-07-17] MEDS: ACETAMINOPHEN 325MG TABLET PO PRN (21:58)
[2022-07-18] MEDS: BLOOD SUGAR DIAGNOSTIC STRIP TEST SCH ×4 (06:14→21:15)
[2022-07-18] MEDS: HYDROCODONE/ACETAMINOPHEN 5/325MG TABLET PO PRN ×2 (06:19→12:53)
[2022-07-18 07:31] LABS: BASOPHILS % 0.6 % (0.0-2.0); EOSINOPHILS % 5.9 % (0.0-5.0); HEMATOCRIT. 34.7 % (42.0-52.0); HEMOGLOBIN. 11.5 g/dL (14.0-18.0); MEAN CORPUSCULAR HEMOGLOBIN 32.1 pg (28.0-32.0); MEAN PLATELET VOLUME 7.8 fl (7.4-10.4); NEUTROPHILS % 47.5 % (40.0-76.0); PLATELET 236 x1000/uL (130-400); RED BLOOD CELL COUNT 3.57 mill/uL (4.7-6.1); RED CELL DISTRIBUTION WIDTH 17.5 % (11.6-14.6)
[2022-07-18] MEDS: ENOXAPARIN 40MG/0.4ML SYR SUBCUT SCH (07:53)
[2022-07-18] MEDS: DICLOFENAC SODIUM 1% GEL 50GM TOP SCH ×4 (07:53→21:14)
[2022-07-18] MEDS: LIDOCAINE 5% PATCH TOP SCH (07:53)
[2022-07-18] MEDS: METOPROLOL SUCCINATE 50MG ER TABLET PO SCH (07:54)
[2022-07-18] MEDS: PANTOPRAZOLE 40MG DR TABLET PO SCH ×2 (07:54→21:13)
[2022-07-18] MEDS: METFORMIN HCL 500MG TABLET PO SCH ×2 (07:54→16:10)
[2022-07-18] MEDS: FINASTERIDE 5MG TABLET PO SCH (07:54)
[2022-07-18 08:00] VITALS: BP 159/79
[2022-07-18 08:09] LABS: CHLORIDE 104 mEq/L (98-107)
[2022-07-18] MEDS: INSULIN LISPRO 100 UNITS/ML SUBCUT SCH ×4 (08:13→21:00)
[2022-07-18] MEDS: OXYBUTYNIN CHLORIDE 5MG TABLET PO SCH ×2 (08:13→21:13)
[2022-07-18 20:00] VITALS: BP 99/56
[2022-07-18] MEDS: ATORVASTATIN CALCIUM 10MG TABLET PO SCH (21:13)
[2022-07-18] MEDS: MELATONIN 3MG TABLET PO SCH (21:13)
[2022-07-18] MEDS: ACETAMINOPHEN 325MG TABLET PO PRN (21:20)
[2022-07-19] MEDS: HYDROCODONE/ACETAMINOPHEN 5/325MG TABLET PO PRN (06:01)
[2022-07-19] MEDS: BLOOD SUGAR DIAGNOSTIC STRIP TEST SCH (06:30)
[2022-07-19 08:00] VITALS: BP 172/84
[2022-07-19] MEDS: INSULIN LISPRO 100 UNITS/ML SUBCUT SCH (09:00)
[2022-07-19] MEDS: METOPROLOL SUCCINATE 50MG ER TABLET PO SCH (09:55)
[2022-07-19] MEDS: PANTOPRAZOLE 40MG DR TABLET PO SCH (09:55)
[2022-07-19] MEDS: FINASTERIDE 5MG TABLET PO SCH (09:55)
[2022-07-19] MEDS: METFORMIN HCL 500MG TABLET PO SCH (09:55)
[2022-07-19 09:56] VITALS: BP 172/84
[2022-07-19] MEDS: LIDOCAINE 5% PATCH TOP SCH (09:56)
[2022-07-19] MEDS: OXYBUTYNIN CHLORIDE 5MG TABLET PO SCH (10:00)
[2022-07-19] MEDS: CLONIDINE 0.1MG TABLET PO PRN (10:00)
[2022-07-19] MEDS: ENOXAPARIN 40MG/0.4ML SYR SUBCUT SCH (10:02)
[2022-07-19] MEDS: DICLOFENAC SODIUM 1% GEL 50GM TOP SCH (10:22)
== END 2022-07-19 11:30 | disposition home health service (06) | DRG 64 ==
PROVIDERS: ADMIT Physical Medicine & Rehabilitation Spinal Cord Injury Medicine; ATTEND Internal Medicine
DX: I63.81 Other cerebral infarction due to occlusion or stenosis of small artery (principal); G93.41 Metabolic encephalopathy; S72.142A Displaced intertrochanteric fracture of left femur, initial encounter for closed fracture; I69.351 Hemiplegia and hemiparesis following cerebral infarction affecting right dominant side; I67.82 Cerebral ischemia; D64.9 Anemia, unspecified; D69.6 Thrombocytopenia, unspecified; D72.829 Elevated white blood cell count, unspecified; E11.69 Type 2 diabetes mellitus with other specified complication; E78.00 Pure hypercholesterolemia, unspecified; E87.6 Hypokalemia; I10 Essential (primary) hypertension; M17.0 Bilateral primary osteoarthritis of knee; N40.0 Benign prostatic hyperplasia without lower urinary tract symptoms; R13.10 Dysphagia, unspecified; R47.1 Dysarthria and anarthria; R53.81 Other malaise; R74.01 Elevation of levels of liver transaminase levels; R41.89 Other symptoms and signs involving cognitive functions and awareness; M71.21 Synovial cyst of popliteal space [Baker], right knee; Z82.49 Family history of ischemic heart disease and other diseases of the circulatory system; Z86.718 Personal history of other venous thrombosis and embolism; Z86.73 Personal history of transient ischemic attack (TIA), and cerebral infarction without residual deficits; Z91.81 History of falling; V89.2XXA Person injured in unspecified motor-vehicle accident, traffic, initial encounter; Y93.89 Activity, other specified; Y92.89 Other specified places as the place of occurrence of the external cause; Y99.8 Other external cause status; Z98.42 Cataract extraction status, left eye; Z98.41 Cataract extraction status, right eye; R26.9 Unspecified abnormalities of gait and mobility
CPT/HCPCS: 36415; 71046; 73552; 73560; 74230; 80048; 80053; 81003; 82270; 82306; 82607; 82728; 82746; 82962; 83036; 83540; 83550; 84134; 84443; 85025; 90732; 92523; 92610; 92611; 93970; 97110; 97112; 97116; 97150; 97162; 97166; 97530; 97535; 97542; J1650; J1815